=== PATIENT | male | born 1990 | race Caucasian/White ===

== ENCOUNTER 2017-07-18 09:08 | Emergency (ER) | payer MEDICAID, OTHER ==
[2017-07-18 09:21] VITALS: BP 122/72; PULSE 92; RESP 20; TEMP 99; O2SAT 98
--- NOTE | 2017-07-18 10:04 | ED PDOC ---
HPI: CCC, URI, Sore Throat Time Seen by Provider: 07/18/17 09:43 Chief Complaint (Nursing): Flu-like Symptoms History Per: Patient History/Exam Limitations: no limitations Onset/Duration Of Symptoms: Days (2), Gradual Current Symptoms Are (Timing): Still Present Location Of Pain: Throat, Headache (frontal ethmoid area) Sick Contacts (Context): None Associated Symptoms: Sore Throat, Cough. denies: Fever, Chills, Sputum, Neck Pain, Myalgias, Nasal Congestion, Nausea, Vomiting, Diarrhea Ear Symptoms: Bilateral: None Severity: Mild Additional History Per: Patient Additional Complaint(s): he has flu like symptoms x 2 days. c/o generalized muscle aches. no travel or sick contacts, has frontal and ethmoid tellez. similar sx to the flu in the past Past Medical History Reviewed: Historical Data, Nursing Documentation, Vital Signs Vital Signs: Last Vital Signs Temp 99 F 07/18/17 09:18 Pulse 92 H 07/18/17 09:18 Resp 20 07/18/17 09:18 BP 122/72 07/18/17 09:18 Pulse Ox 98 07/18/17 10:09 - Medical History PMH: Asthma - Family History Family History: States: No Known Family Hx - Living Arrangements Living Arrangements: With Family - Social History Current smoker - smoking cessation education provided: No - Home Medications Home Medications: Ambulatory Orders Medication Instructions Recorded Oseltamivir Phosphate [Tamiflu] 75 mg PO BID #10 cap 10/08/14 Albuterol HFA [Ventolin HFA 90 1 puff IH ASDIR #1 unit 12/10/15 mcg/actuation (8 g)] Benzonatate 200 mg PO TID PRN #20 capsule 12/10/15 Oseltamivir Phosphate [Tamiflu] 75 mg PO BID #10 tab 12/10/15 Azithromycin [Zithromax] 250 mg PO DAILY #6 tab 07/18/17 Loratadine/Pseudoephedrine 1 each PO DAILY PRN #30 tab.er.24h 07/18/17 [Claritin-D 24 Hour Tablet] - Allergies Allergies/Adverse Reactions: Allergies Allergy/AdvReac Type Severity Reaction Status Date / Time No Known Allergies Allergy Verified 07/18/17 09:18 Review of Systems ROS Statement: Except As Marked, All Systems Reviewed And Found Negative Constitutional: Positive for: Chills, Malaise Cardiovascular: Negative for: Chest Pain, Palpitations Respiratory: Positive for: Cough. Negative for: Shortness of Breath Gastrointestinal: Negative for: Nausea, Vomiting, Abdominal Pain Skin: Negative for: Rash Neurological: Negative for: Weakness, Numbness Physical Exam - Reviewed Nursing Documentation Reviewed: Yes Vital Signs Reviewed: Yes - Physical Exam Appears: Positive for: Uncomfortable Head Exam: Positive for: ATRAUMATIC, NORMAL INSPECTION, NORMOCEPHALIC Eye Exam: Positive for: Normal appearance, EOMI, PERRL, Other (va nml). Negative for: Periorbital swelling, Periorbital tenderness, Conjunctival injection, Scleral icterus ENT: Positive for: Pharynx Is (clear,mmm), TM Is/Are (nml), Sinus Pain/Drainage (milf ehtmoid sinus tenderness). Negative for: Pharyngeal Erythema, Tonsillar Exudate, Tonsillar Swelling Neck: Positive for: Normal, Painless ROM, Supple Cardiovascular/Chest: Positive for: Regular Rate, Rhythm, Chest Non Tender. Negative for: Edema, Gallop Respiratory: Positive for: Normal Breath Sounds. Negative for: Decreased Breath Sounds, Rales, Rhonchi, Wheezing Pulses-Radial (L): 2+ Pulses-Radial (R): 2+ Gastrointestinal/Abdominal: Positive for: Normal Exam, Bowel Sounds, Soft. Negative for: Tenderness Extremity: Positive for: Normal ROM. Negative for: Tenderness, Pedal Edema Neurologic/Psych: Positive for: Alert, sewer pipe cleaner II-XII, Oriented, Mood/Affect (calm) , Gait (steady gait). Negative for: Motor/Sensory Deficits, Facial Droop - ECG O2 Sat by Pulse Oximetry: 98 Pulse Ox Interpretation: Normal Disposition - Clinical Impression Clinical Impression: Sinusitis - Patient ED Disposition Is Patient to be Admitted: No Counseled Patient/Family Regarding: Studies Performed, Diagnosis, Need For Followup - Disposition Referrals: [facility] [Outside] (2 to 3 days) Disposition: Routine/Home Disposition Time: 10:05 Condition: GOOD Prescriptions: Azithromycin [Zithromax] 250 mg PO DAILY #6 tab Loratadine/Pseudoephedrine [Claritin-D 24 Hour Tablet] 1 each PO DAILY PRN #30 tab.er.24h PRN Reason: Cough Instructions: Sinusitis (ED) Forms: [facility] ([place]), [facility] ED School/Work Excuse
== END 2017-07-18 10:17 | disposition home or self-care (01) ==
LOC: H.ER 09:08
DX: J32.9 Chronic sinusitis, unspecified (principal); J45.909 Unspecified asthma, uncomplicated

== ENCOUNTER 2018-12-31 10:40 | Emergency (ER) | payer MEDICAID, OTHER ==
[2018-12-31] MEDS ORDERED: Naproxen 500 MG TAB PO ONE ×2 (11:12→11:19)
--- NOTE | 2018-12-31 11:33 | ED PDOC ---
Lower Extremity Pain/Injury Time Seen by Provider: 12/31/18 10:50 Chief Complaint (Nursing): Lower Extremity Problem/Injury Chief Complaint (Provider): Lower Extremity Problem/Injury History Per: Patient History/Exam Limitations: no limitations Onset/Duration Of Symptoms: Days Current Symptoms Are (Timing): Still Present Additional Complaint(s): 28 y/o male with no significant PMHx presents to the ED accompanied by father for evaluation of left knee pain, onset just prior to arrival. Patient reports he was playing basketball when he fell, landing on his left knee. Patient notes of hearing a "cracking" sound. Patient states he is unable to walk or bear weight on his left knee. Patient denies any previous injury to that knee. PMD: [place] Past Medical History Reviewed: Historical Data, Nursing Documentation, Vital Signs Vital Signs: Last Vital Signs Temp 98.5 F 12/31/18 10:50 Pulse 90 12/31/18 10:50 Resp 18 12/31/18 10:50 BP 137/84 12/31/18 10:50 Pulse Ox 99 12/31/18 10:50 - Medical History PMH: Asthma - Surgical History Surgical History: No Surg Hx - Family History Family History: States: Unknown Family Hx - Immunization History Hx Tetanus Toxoid Vaccination: No Hx Influenza Vaccination: No Hx Pneumococcal Vaccination: No - Home Medications Home Medications: Ambulatory Orders Medication Instructions Recorded Oseltamivir Phosphate [Tamiflu] 75 mg PO BID #10 cap 10/08/14 Albuterol HFA [Ventolin HFA 90 1 puff IH ASDIR #1 unit 12/10/15 mcg/actuation (8 g)] Benzonatate 200 mg PO TID PRN #20 capsule 12/10/15 Oseltamivir Phosphate [Tamiflu] 75 mg PO BID #10 tab 12/10/15 Azithromycin [Zithromax] 250 mg PO DAILY #6 tab 07/18/17 Loratadine/Pseudoephedrine 1 each PO DAILY PRN #30 tab.er.24h 07/18/17 [Claritin-D 24 Hour Tablet] Naproxen [Naprosyn] 500 mg PO BID PRN #20 tablet 12/31/18 - Allergies Allergies/Adverse Reactions: Allergies Allergy/AdvReac Type Severity Reaction Status Date / Time No Known Allergies Allergy Verified 07/18/17 09:18 Review of Systems ROS Statement: Except As Marked, All Systems Reviewed And Found Negative Musculoskeletal: Positive for: Leg Pain Physical Exam - Reviewed Nursing Documentation Reviewed: Yes Vital Signs Reviewed: Yes - Physical Exam Appears: Positive for: No Acute Distress Head Exam: Positive for: ATRAUMATIC, NORMOCEPHALIC Skin: Positive for: Normal Color, Warm, Dry Eye Exam: Positive for: Normal appearance, EOMI, PERRL Neck: Positive for: Normal, Painless ROM Cardiovascular/Chest: Positive for: Regular Rate, Rhythm. Negative for: Murmur Respiratory: Positive for: Normal Breath Sounds. Negative for: Respiratory Distress Gastrointestinal/Abdominal: Positive for: Normal Exam, Soft. Negative for: Tenderness Extremity: Positive for: Tenderness (tenderness to palpation of the lateral join). Negative for: Normal ROM (Pain on ROM on valgus stress), Deformity, Swelling Neurological/Psych: Positive for: Awake, Alert, Oriented (x3). Negative for: Motor/Sensory Deficits - ECG O2 Sat by Pulse Oximetry: 99 (RA) Pulse Ox Interpretation: Normal Medical Decision Making Medical Decision Making: Time: 1112 Impression: Left Knee Injury Plan: -- Knee 3 Views Left XR -- Naproxen 500 mg PO Time: 1154 PROCEDURE: Left Knee Radiographs. HISTORY: Pain. COMPARISON: None. TECHNIQUE: 2 views obtained. FINDINGS: BONES: No evidence of acute displaced fracture nor dislocation. The osseous structures appear intact. JOINTS: Joint spaces preserved. No significant osteoarthritis. JOINT EFFUSION: No significant joint effusion OTHER FINDINGS: There appears to be some minimal skin abrasion changes in the suprapatellar region. IMPRESSION: No evidence of acute displaced fracture nor dislocation. There appears to be some skin abrasion changes in the suprapatellar severe region. Scribe Attestation: Documented by Kaylie Sharma, acting as a scribe Ji Larry MD. Provider Scribe Attestation: All medical record entries made by the Scribe were at my direction and personally dictated by me. I have reviewed the chart and agree that the record accurately reflects my personal performance of the history, physical exam, medical decision making, and the department course for this patient. I have also personally directed, reviewed, and agree with the discharge instructions and disposition. Disposition - Clinical Impression Clinical Impression: Left knee injury - Patient ED Disposition Is Patient to be Admitted: No Doctor Will See Patient In The: Office Counseled Patient/Family Regarding: Diagnosis, Need For Followup - Disposition Referrals: [facility] [Provider Group] Disposition: Routine/Home Disposition Time: 12:19 Condition: STABLE Prescriptions: Naproxen [Naprosyn] 500 mg PO BID PRN #20 tablet PRN Reason: Pain, Moderate (4-7) Instructions: Knee Pain (DC) Forms: [facility] ([place]), [facility] ED School/Work Excuse - POA Present On Arrival: Falls Or Trauma
--- NOTE | 2018-12-31 11:57 | RAD ---
Date of service: 12/31/2018 PROCEDURE: Left Knee Radiographs. HISTORY: Pain. COMPARISON: None. TECHNIQUE: 2 views obtained. FINDINGS: BONES: No evidence of acute displaced fracture nor dislocation. The osseous structures appear intact. JOINTS: Joint spaces preserved. No significant osteoarthritis. JOINT EFFUSION: No significant joint effusion OTHER FINDINGS: There appears to be some minimal skin abrasion changes in the suprapatellar region. IMPRESSION: No evidence of acute displaced fracture nor dislocation. There appears to be some skin abrasion changes in the suprapatellar severe region.
[2018-12-31 12:53] VITALS: BP 117/60; PULSE 72; RESP 16; TEMP 97.8; O2SAT 100
== END 2018-12-31 12:50 | disposition home or self-care (01) ==
LOC: H.ER 10:40
DX: S89.92XA Unspecified injury of left lower leg, initial encounter (principal); J45.909 Unspecified asthma, uncomplicated; W18.30XA Fall on same level, unspecified, initial encounter; Y93.67 Activity, basketball